=== PATIENT | female | born 1965 | race American Indian/Alaskan Native ===

== ENCOUNTER 2016-05-11 06:42 | Day surgery (SDC) | payer MEDICAID ==
[2016-05-11] MEDS ORDERED: ECOTRIN PO ONE (07:19)
[2016-05-11] MEDS ORDERED: BENADRYL ONE (07:46)
[2016-05-11] MEDS ORDERED: ZOFRAN ONE (07:46)
[2016-05-11] MEDS ORDERED: PEPCID IV ONE (07:48)
[2016-05-11] MEDS ORDERED: ZOFRAN IV ONE (07:49)
[2016-05-11] MEDS ORDERED: BENADRYL IV ONE (07:49)
[2016-05-11 07:53] LABS: Basophils % (Auto) 0.9 % (0.0-1.8); Eosinophils % (Auto) 4.8 % (0.0-4.3); Hematocrit 41.1 % (30.3-42.9); Hemoglobin 13.5 gm/dl (10.1-14.3); Mean Corpuscular HGB Conc 33 % (30-34); Mean Corpuscular Hemoglobin 31 pg (28-32); Mean Corpuscular Volume 93 fl (79-97); Platelet Count 216 K/mm3 (140-440); Red Blood Count 4.41 M/mm3 (3.65-5.03); Red Cell Distribution Width 14.2 % (13.2-15.2); White Blood Count 6.8 K/mm3 (4.5-11.0)
[2016-05-11] MEDS ORDERED: HEPARIN/NS 5000 UNIT/500ML(CATH LAB) 1,000 ML IR ONE (07:59)
[2016-05-11 08:00] LABS: Anion Gap 16 mmol/L; BUN/Creatinine Ratio 16.66; Blood Urea Nitrogen 15 mg/dL (7-17); Calcium 9.3 mg/dL (8.4-10.2); Carbon Dioxide 25 mmol/L (22-30); Chloride 105.6 mmol/L (98-107); Glucose 100 mg/dL (65-100); Potassium 3.9 mmol/L (3.6-5.0); Sodium 143 mmol/L (137-145)
[2016-05-11] MEDS ORDERED: NACL 0.9% 500 ML 500 ML IV SCH (08:00)
[2016-05-11 08:04] LABS: INR 1.05 (0.87-1.13)
[2016-05-11] MEDS: SUBLIMAZE ONE ×2 (08:35→08:42)
[2016-05-11] MEDS: VERSED ONE ×2 (08:35→08:42)
[2016-05-11] MEDS: XYLOCAINE 2% INFILTRATI ONE ×2 (08:40→08:42)
[2016-05-11] MEDS: HEPARIN 10,000 UNITS/10 ML ONE ×2 (08:43→08:45)
[2016-05-11] MEDS: CALAN ONE ×2 (08:43→08:45)
[2016-05-11] MEDS: NITROGLYCERIN SYRINGE 3 ML ONE ×2 (08:44→08:45)
[2016-05-11] MEDS ORDERED: SUBLIMAZE IV ONE (09:11)
--- NOTE | 2016-05-11 09:15 | Discharge Summary ---
Short Stay Discharge Plan Activity: other (Post Cardiac Cath instructions) Diet: low fat, low cholesterol, low salt Follow up with: ARMAND GREENBERG MD [Primary Care Provider] - 7 Days DANIELA BARRETO MD [Staff Physician] - 7 Days
--- NOTE | 2016-05-11 09:20 | Cardiac Catherization Report ---
HISTORY: The patient is a 50-year-old female who has been experiencing angina-like symptoms. She underwent a treadmill stress test where she developed exertional angina but no significant electrocardiographic changes. Given her history, coronary angiography was recommended. PROCEDURE: Left heart catheterization, ventriculography, and coronary angiography via the right radial artery using 5-[place] catheters and the pigtail catheter. COMPLICATIONS: None. ESTIMATED BLOOD LOSS: 10-20 mL. TISSUE SAMPLES: None. SEDATION: Intravenous Versed and fentanyl. PREPROCEDURE DIAGNOSIS: Angina. POSTPROCEDURE DIAGNOSES: Essentially normal coronaries, hypercontractile left ventricle. HEMODYNAMICS: Central aortic pressure 130/85, left ventricular pressure 135/27. ANGIOGRAPHIC RESULTS: 1. Left ventricle: The ventriculogram reveals a normal sized left ventricle, which is hypercontractile. The ejection fraction is 70-80%. There appears to be mild left ventricular hypertrophy. 2. Right coronary artery: This is a codominant vessel and there are mild intimal irregularities. 3. Left coronary artery: Mild intimal irregularities. FINAL IMPRESSION: 1.Angina: No significant coronary lesions. Consider GI etiology and consider coronary spasm. 2.Left ventricle is hypercontractile and there appears to mild left ventricular hypertrophy. PLAN: Aggressive medical therapy, CAD risk factor modification, office followup within 7 days. JOB# [id number] GRAYSON/NTS
[2016-05-11 11:17] VITALS: BP 141/83
== END 2016-05-11 12:15 | disposition home or self-care (01) ==
LOC: OPU 06:42
PROVIDERS: ATTEND Internal Medicine
DX: I20.9 Angina pectoris, unspecified (principal)
CPT/HCPCS: 36415; 80048; 85025; 85610; 85730; 93005; 93010; 93458; 96374; 96375; C1894; J1200; J1644; J2250; J2405; J2930; J3010; J7040; Q9967

== ENCOUNTER 2017-03-27 09:09 | Outpatient (CLI) | payer MEDICAID ==
--- NOTE | 2017-03-27 17:30 | XRay Report ---
FINAL REPORT EXAM: XR HAND BILAT 3+V HISTORY: BILATERAL HAND PAIN TECHNIQUE: AP, lateral, and oblique views of each hand PRIORS: None. FINDINGS: There is no evidence for acute fracture or dislocation. No soft tissue swelling or radiopaque foreign bodies are seen. Bony mineralization is normal and joint spaces are maintained. IMPRESSION: No acute bony or soft tissue abnormality noted.
== END 2017-03-27 09:10 | disposition home or self-care (01) ==
LOC: SPVIMAG 09:09
PROVIDERS: ATTEND Orthopaedic Surgery Sports Medicine
DX: M79.642 Pain in left hand (principal); M79.641 Pain in right hand